=== PATIENT | female | born 1975 | race African-American/Black ===

== ENCOUNTER 2018-03-04 18:46 | Emergency (ER) | payer OTHER ==
[~2018-03-04] VITALS: Ht 152.4 cm; Wt 68.0 kg
--- NOTE | ~2018-03-04 | EKG ---
[address] [address] ELECTROCARDIOGRAM REPORT Name: THIERNO FOSTER Room #: [facility]#: [id number] Admission: 03/04/18 Attend Phys: Discharge: 03/04/18 Date of : 73 Report #: [id number] THIS REPORT FOR: //name// [facility] ED Test Date: 2018-03-04 Test Time: 19:27:18 Pat Name: THIERNO FOSTER Department: Room: Gender: F Information Technology Technician: LINETTE : 1975 Requested By: Kaur Aguila Order Number: [id number] MD: Efraín Valladares Measurements Intervals Spray Rate: 74 P: 40 GA: 142 QRS: 72 QRSD: 79 T: 67 QT: 393 QTc: 436 Interpretive Statements Sinus rhythm No previous ECG available for comparison Electronically Signed On 03-05-2018 9:59:37 CDT by Efraín Valladares [email or web address] <ELECTRONICALLY SIGNED> By: Efraín Valladares MD 03/05/18 0959 [id number] 26 Efraín Valladares MD /ALYCIA
[2018-03-04 19:28] LABS: HEMATOCRIT 41.3 % (37.0-47.0); HEMOGLOBIN 13.5 gm/dL (12.0-15.0); MCH 27.7 pg (26.0-34.0); MCHC 32.7 g/dL (28.0-37.0); MCV 84.5 fL (80.0-100.0); PLATELET COUNT 162 thou/uL (150-400); RBC 4.89 mil/uL (4.20-5.00); RDW 14.3 % (10.5-14.5); WBC 4.5 thou/uL (4.0-11.0)
[2018-03-04 19:32] LABS: ANION GAP 8 mmol/L (7-16); BUN 7 mg/dL (7-18); CALCIUM 9.2 mg/dL (8.5-10.1); CHLORIDE 104 mmol/L (98-107); CO2 27 mmol/L (21-32); CREATININE 0.6 mg/dL (0.6-1.0); GLUCOSE 148 mg/dL (74-106); POTASSIUM 3.8 mmol/L (3.5-5.1); SODIUM 139 mmol/L (136-145)
[2018-03-04 19:35] LABS: URINE BILIRUBIN NEGATIVE (Negative); URINE BLOOD NEGATIVE (Negative); URINE CLARITY CLEAR; URINE COLOR YELLOW; URINE GLUCOSE-RANDOM* NEGATIVE (Negative); URINE KETONES NEGATIVE (Negative); URINE LEUKOCYTES-REFLEX NEGATIVE (Negative); URINE NITRITE-REFLEX NEGATIVE (Negative); URINE PROTEIN (DIPSTICK) NEGATIVE (Negative); URINE SPECIFIC GRAVITY <= 1.005 (1.005-1.035); URINE UROBILINOGEN 0.2 E.U./dl (0.2-1.0)
[2018-03-04 19:37] LABS: TROPONIN-I < 0.04 ng/mL (<0.06)
[2018-03-04 19:54] LABS: ABSOLUTE NEUTROPHILS 1.6 thou/uL (1.4-8.2); ANISOCYTOSIS 1+; ATYPICAL LYMPHS 26 %
[2018-03-04 19:55] LABS: MACROCYTES 1+; POLYCHROMASIA 1+
[2018-03-04 21:02] VITALS: BP 101/67
== END 2018-03-04 21:03 | disposition home or self-care (01) ==
LOC: ER 18:46
PROVIDERS: Emergency Medicine
DX: R00.2 Palpitations (principal); R53.1 Weakness